=== PATIENT | female | born 1990 | race Caucasian/White ===

== ENCOUNTER 2017-07-09 11:38 | Emergency (ER) | payer OTHER ==
[~2017-07-09] VITALS: Ht 165.1 cm; Wt 95.0 kg
[~2017-07-09 11:38] MED LIST: AMOX500C2 PO; GUAI118L22 PO; PRED20TA PO; PREN1TAB49; PREN1TAB49 PO
[2017-07-09 11:39] VITALS: Ht 165.1 cm; Wt 95.0 kg
[2017-07-09] MEDS ORDERED: ALBU8.5H3 INH (12:01)
[2017-07-09] MEDS ORDERED: MED4DP PO (12:01)
[2017-07-09] MEDS ORDERED: GUAI-637 PO (12:02)
--- NOTE | 2017-07-09 12:22 | ERD ---
ER Documentation Chief Complaint Date/Time DATE: 07/09/17 TIME: 12:21 Chief Complaint cough/chest congestion/throat pain x 1 week HPI This is a 27-year-old female presents to the ER with a dry cough over the last week. Patient states that she at times feels short of breath and was taking inhaler for her shortness of breath which helped, however she got out of her inhaler. She has not had any fevers or chills. She denies any shortness of breath at this time. She also complains of sore throat and chest congestion. ROS 12 point review of systems was done, all negative except per HPI. Medications Home Meds Active Scripts Guaifenesin* (Robitussin*) 100 Mg/5 Ml Syrup, 200 MG PO Q4H Y for COUGH for 3 Days, ML Prov:DIANNE MORALES 07/09/17 Albuterol Sulfate* (Proair HFA*) 8.5 Gm Hfa.aer.ad, 2 PUFF INH Q4, #1 INHALER Prov:DIANNE MORALES 07/09/17 Methylprednisolone* (Medrol* DOSE PACK) 4 Mg/Dose-Pack Tab.ds.pk, 4 MG PO . DIRECTED for 6 Days, PACKET Prov:BHARAT MORALESMACY Payan 07/09/17 Amoxicillin* (Amoxicillin*) 500 Mg Cap, 500 MG PO TID for 10 Days, CAP Prov:OMAR PANDEY DO 11/29/15 Guaifenesin/Codeine Phosphate (CHERATUSSIN AC SYRUP) 118 Ml Liquid, 5 ML PO Q6, #120 ML Prov:OMAR PANDEY DO 11/29/15 Prednisone* (Prednisone*) 20 Mg Tab, 40 MG PO DAILY for 4 Days, TAB Prov:OMAR PANDEY DO 11/29/15 Reported Medications Vits W-Ca,Fe,Fa(<1MG) () 1 Tab Tablet 03/04/12 Vits W-Ca,Fe,Fa(<1MG) () 1 Tab Tablet, 1 TAB PO 03/04/12 Allergies Allergies: Coded Allergies: latex (Verified Allergy, Unknown, 07/09/17) PMhx/Soc History of Surgery: Yes Anesthesia Reaction: No Hx Neurological Disorder: No Hx Respiratory Disorders: Yes (BRONCHITIS; PENUMONIA) Hx Cardiac Disorders: No Hx Psychiatric Problems: No Hx Miscellaneous Medical Probl: No Hx Alcohol Use: No Hx Substance Use: No Hx Tobacco Use: No Smoking Status: Never smoker Physical Exam Vitals Vital Signs Date Time Temp Pulse Resp B/P Pulse Ox O2 Delivery O2 Flow Rate FiO2 07/09/17 11:39 99.2 87 18 137/62 97 Physical Exam GENERAL: The patient is well-developed, well-nourished, in no acute distress. NECK: Cervical spine is non tender with no step off. Supple, no nuchal rigidity HEENT: Atraumatic. Pupils equal, round and reactive to light. Extraocular muscles are grossly intact. Conjunctivae pink, no discharge. Bilateral tympanic membranes are clear with no evidence of erythema, effusion or dulling of the light reflex. Tonsilar erythema with no exudates or uvular deviation. Clear rhinorrhea. RESPIRATORY: Clear to auscultation bilaterally. There are no rales, wheezes or rhonchi. HEART: Regular rate and rhythm. No murmurs, clicks, rubs or gallops. EXTREMITIES: No clubbing or cyanosis. Full range of motion. Grossly neurovascularly intact. NEUROLOGIC: Alert and oriented. Cranial nerves II through XII are intact. SKIN: There is no rash. The skin is warm and dry. Procedures/MDM Differential diagnosis includes but is not limited to; Viral URI, allergic rhinitis, bronchitis, pertussis,pneumonia. This is likely viral in etiology. Clinical suspicion for pneumonia is low as patient appears well, is not hypoxic or in any respiratory distress. Additionally, patients physical examination is benign. Plan was discussed with patient they understand and agree. Patient needs to follow up with PCP in 1-2 days or return to ER sooner if symptoms worsen. Departure Diagnosis: Primary Impression: Bronchitis Condition: Stable Patient Instructions: Bronchitis With Wheezing (Adult) Additional Instructions: Call your primary care doctor TOMORROW for an appointment during the next 1-2 days.See the doctor sooner or return here if your condition worsens before your appointment time. DIANNE MORALES Jul 09, 2017 12:22
== END 2017-07-09 12:20 | disposition home or self-care (01) ==
LOC: FTE 11:38
DX: J40 Bronchitis, not specified as acute or chronic (principal)
CPT/HCPCS: 99284

== ENCOUNTER 2017-11-15 11:01 | Emergency (ER) | END 2017-11-15 11:53 | disposition home or self-care (01) ==

== ENCOUNTER 2018-03-25 15:45 | Emergency (ER) | END 2018-03-25 16:42 | disposition home or self-care (01) ==